=== PATIENT | male | born 1990 | race Caucasian/White ===

== ENCOUNTER 2018-03-24 21:18 | Emergency (ER) | payer SELFPAY ==
[2018-03-24] MEDS ORDERED: ONDANSETRON 4 MG/2 ML VIAL IVP ONE (21:22)
[2018-03-24] MEDS ORDERED: FAMOTIDINE 20 MG in NS 100 ML IV ONE (21:22)
[2018-03-24] MEDS ORDERED: NS 1,000 ML IV ONE (21:22)
[2018-03-24] MEDS ORDERED: HYDROmorphONE/DILAUDID 2 MG/ML INJ IVP ONE (21:22)
--- NOTE | 2018-03-24 21:26 | EDPHY ---
H & P Time Seen by Provider: 03/24/18 21:20 HPI/ROS: HPI Abdominal pain. 27-year-old male by private vehicle with his girlfriend. This patient reports that he has had upper and mid abdominal pain which he describes as aching sharp and crampy for the last 2-3 weeks. He reports the pain initially started in his upper abdomen but now is more predominant in the lower abdomen 80 states that it moves around. He was seen at [facility] emergency department for this complaint a week or 2 ago. He had ultrasound imaging reportedly of his gallbladder which was unremarkable. He states that his blood work was unremarkable as well except for an elevated white blood cell count. He was given what he describes as antipsychotic at the emergency department at [facility]. He reports that this made him feel out of it but relieved his pain for a couple of days. He was then seen by a locomotive crane operator helper in this building about a week ago and had an upper endoscopy which was reported to him as being unremarkable. He cannot remember the name of the locomotive crane operator helper and I cannot find a report from this physician in the EMR. He returns to the emergency department now complaining of an exacerbation of the same abdominal pain which has been plaguing him over the last 2-3 weeks. He has had 1 episode of nonbilious nonbloody vomiting in association with this pain 1-2 weeks ago. No diarrhea. No bloody or melenic stool. No prior abdominal surgical history. As I am examining him he states that he does not have any pain at this time. ROS: Constitutional: No fever, no chills. No weakness. Eyes: No discharge. No changes in vision. ENT: No sore throat. No nasal congestion or rhinorrhea. Respiratory: No cough. No shortness of breath. Cardiac: No chest pain, no palpitations. Gastrointestinal: As above, no diarrhea. Genitourinary: No hematuria. No dysuria or increased frequency with urination. Musculoskeletal: No back pain. No neck pain. No myalgias or arthralgias. Skin: No rashes. Neurological: No headache. No focal weakness or altered sensation. Past medical history: He denies any significant past medical history. Social history: Nonsmoker. Here with his girlfriend. No alcohol. Physical Exam: General Appearance: Alert, no distress. This patient is responding to questions appropriately and in full sentences. This patient appears well- hydrated and well-nourished. Gastrointestinal: Abdomen is soft and nontender on deep palpation throughout, no masses, bowel sounds normal in all 4 quadrants. No focal tenderness at McBurney's point. No Faulkner sign. Neurological: Motor sensory function is grossly intact. Cranial nerves are normal. Gait is normal. Skin: Warm and dry, no rashes. Extremities are symmetrical. All joints range without pain or impingement. Psychiatric: No agitation. No depression. Database: EKG: Imaging: Procedures: Emergency department course: Triage vital signs reviewed and are unremarkable. He has a benign abdominal exam and no pain at this time. I discussed doing and emergency department workup on him. He now declines this and feels comfortable going home. He will follow up with his locomotive crane operator helper tomorrow. I feel this is reasonable. Return to emergency department precautions were thoroughly reviewed with him and his girlfriend. All of their questions were answered. He was discharged from the emergency department in good condition. Differential Diagnosis: The differential diagnosis on this patient includes but is not limited to gastritis, irritable bowel syndrome, inflammatory bowel syndrome. Appendicitis , cholecystitis, volvulus, perforated peptic ulcer, aortic aneurysm, aortic dissection, other acute surgical emergency unlikely. This represents a partial list of diagnoses considered. These considerations are based on history, physical exam, past history, reassessment and diagnostic testing. Constitutional: Initial Vital Signs Temperature (C) 37.1 C 03/24/18 21:27 Heart Rate 65 03/24/18 21:27 Respiratory Rate 16 03/24/18 21:27 Blood Pressure 138/68 H 03/24/18 21:27 O2 Sat (%) 94 03/24/18 21:27 O2 Delivery Mode Room Air Allergies/Adverse Reactions: ibuprofen Allergy (Verified 03/24/18 21:31) Home Medications: Medication Instructions Recorded traMADol 03/24/18 Medical Decision Making - Data Points Medications Given: Discontinued Medications Sodium Chloride (Ns) 1,000 mls @ 0 mls/hr IV EDNOW ONE; Wide Open PRN Reason: Protocol Stop: 03/24/18 21:23 Last Admin: 03/24/18 21:52 Dose: 1,000 mls Point of Care Test Results: CBC CBC Collection Date 03/24/18 CBC Collection Time 21:48 WBC 7.7 RBC 5.35 HGB 16.7 HCT 46.1 PLT 250 Neut # 3 Neut 38.3 LYMPH # 2.7 LYMPH 35.7 Other WBC # 2 Other WBC 26 MCV 86.2 Urine Dip Collection Date 03/24/18 Collection Time 21:20 Specific [place] (1.002-1.030) 1.025 PH (5.0-7.5) 6.5 Leukocytes (Negative) Negative Nitrites (Negative) Negative Protein (Negative) Negative Glucose (Negative) Negative Ketones (Negative) Negative Urobilnogen (0.2-1.0 EU) 0.2 Bilirubin (Negative) Negative Blood (Negative) Negative Departure - Departure Disposition: Home, Routine, Self-Care Clinical Impression: Abdominal pain Condition: Good Instructions: Acute Abdominal Pain (ED) Additional Instructions: Read and follow provided instructions. Follow-up with your locomotive crane operator helper as discussed tomorrow for re-evaluation. Return to the emergency department for return of abdominal pain, vomiting, bloody stool, black stool or other serious concerns. Referrals: Patient,NotPresent [Primary Care Provider] - As per Instructions
[2018-03-24 22:20] VITALS: BP 138/86
== END 2018-03-24 22:25 | disposition home or self-care (01) ==
LOC: CED 21:18
DX: R10.9 Unspecified abdominal pain (principal); R11.10 Vomiting, unspecified; E86.9 Volume depletion, unspecified
CPT/HCPCS: 80053-PO